=== PATIENT | male | born 1950 | race Two or more races ===

== ENCOUNTER 2021-08-30 22:12 | Inpatient (IN) | payer MEDICARE, BC ==
[~2021-08-30] VITALS: Ht 167.6 cm; Wt 83.1 kg
--- NOTE | 2021-08-30 22:30 | NUR ---
BIBS C/O LEFT THIGH PAIN S/P [facility] TODAY -HT -KO. SEEN AT [facility]ENT [facility] TODAY BUT IS HAVING PERSISTENT PAIN. PT CHANGED INTO A GOWN. BREATHING EVEN AND UNLABORED ALL VITALS WITHIN RANGE.
[2021-08-30 23:08] LABS: BASOPHILS % (AUTO) 0.2 % (0.0-2.0); EOSINOPHILS % (AUTO) 0.1 % (0.0-6.0); HEMATOCRIT 35 % (39-51); HEMOGLOBIN 11.9 g/dL (13.5-17.5); LYMPHOCYTES # (AUTO) 1.4 K/uL (0.8-4.8); LYMPHOCYTES % (AUTO) 8.7 % (20.0-44.0); MEAN CORPUSCULAR HGB CONC 34 g/dl (31.0-36.0); MEAN CORPUSCULAR VOLUME 87 fL (80-96); MONOCYTES # (AUTO) 0.6 K/uL (0.1-1.30); MONOCYTES % (AUTO) 3.9 % (2.0-12.0); NEUTROPHILS # (AUTO) 13.9 K/uL (1.8-8.9); NEUTROPHILS % (AUTO) 87.1 % (43.0-81.0); PLATELET COUNT (AUTO) 272 K/uL (150-450); WHITE BLOOD COUNT (AUTO) 15.9 K/uL (4.3-11.0)
[2021-08-30 23:15] LABS: CALCIUM, SERUM 8.5 mg/dL (8.5-10.1); CARBON DIOXIDE 21 mmol/L (21-32); CHLORIDE 104 mmol/L (98-107); CREATININE 2.4 mg/dL (0.6-1.3); GLUCOSE 160 mg/dL (74-106); POTASSIUM 4.2 mmol/L (3.5-5.1); SODIUM SERUM 138 mmol/L (136-145); UREA NITROGEN, BLOOD 42 mg/dL (7-18)
[2021-08-30] MEDS ORDERED: MORPHINE SULFATE INJ 4 MG/ML DISP.SYRIN ONE (23:15)
[2021-08-30] MEDS ORDERED: MORPHINE SULFATE INJ 2 MG/ML DISP.SYRIN IV ONE (23:30)
--- NOTE | 2021-08-30 23:33 | NUR ---
PT TAKEN TO CT
[2021-08-31] MEDS ORDERED: MORPHINE SULFATE INJ 4 MG/ML DISP.SYRIN ONE (00:12)
[2021-08-31] MEDS ORDERED: MORPHINE SULFATE INJ 2 MG/ML DISP.SYRIN IV ONE (00:30)
--- NOTE | 2021-08-31 01:38 | NUR ---
CALLED ANDREY FOR CT READ
--- NOTE | 2021-08-31 01:47 | NUR ---
PT BP ELEVATED REPORTS HISTORY OF HTN. STATES PAIN IS WELL MANAGED. MD NOTIFIED AND ORDERS RECIEVED.
[2021-08-31] MEDS ORDERED: LABETALOL HCL IV 100MG VIAL ONE (01:55)
[2021-08-31] MEDS ORDERED: LABETALOL HCL IV 100MG VIAL IV ONE (02:00)
--- NOTE | 2021-08-31 02:28 | NUR ---
DR MANNING PAGED FOR CONSULT AND TRANSFERRED TO DR DOCKERY
--- NOTE | 2021-08-31 02:32 | NUR ---
pt info sent to Dr. Fischer
--- NOTE | 2021-08-31 03:28 | NUR ---
COVID SWAB SENT TO LAB
--- NOTE | 2021-08-31 04:43 | NUR ---
EPIC PANEL PAGED
--- NOTE | 2021-08-31 04:43 | NUR ---
Marcial cao in [facility] - 08/31/21 at 0443 by JULIETA EPIO
--- NOTE | 2021-08-31 05:16 | NUR ---
PT SLEEPING COMOFORTABLY BREATHING EVEN AND UNLABORED ALL VSS CALL LIGHT WITHIN REACH.
[2021-08-31] MEDS ORDERED: MAGNESIUM HYDROXIDE 30 ML UDC PO PRN (06:00)
[2021-08-31] MEDS ORDERED: ZOLPIDEM TARTRATE 5 MG TABLET PO PRN (06:00)
[2021-08-31] MEDS ORDERED: ACETAMINOPHEN 325 MG TABLET PO PRN (06:00)
[2021-08-31] MEDS ORDERED: ONDANSETRON HCL/PF 4 MG/2 ML VIAL IVP PRN (06:00)
[2021-08-31] MEDS ORDERED: Z GUARD REMEDY 2 OZ OINT TP PRN (06:00)
[2021-08-31] MEDS ORDERED: MAG HYDROX/AL HYDROX/SIMETH 30 ML UDC PO PRN (06:00)
--- NOTE | 2021-08-31 06:21 | NUR ---
CTA CANCELLED PER DR MANNING'S VERBAL ORDERS. WAS INFORMED TO CONTACT VASCULAR SURGERY.
[2021-08-31 06:44] LABS: BASOPHILS % (AUTO) 0.2 % (0.0-2.0); EOSINOPHILS % (AUTO) 0.1 % (0.0-6.0); HEMATOCRIT 34 % (39-51); HEMOGLOBIN 11.3 g/dL (13.5-17.5); LYMPHOCYTES # (AUTO) 2.5 K/uL (0.8-4.8); LYMPHOCYTES % (AUTO) 15.4 % (20.0-44.0); MEAN CORPUSCULAR HGB CONC 34 g/dl (31.0-36.0); MEAN CORPUSCULAR VOLUME 89 fL (80-96); MONOCYTES # (AUTO) 1.2 K/uL (0.1-1.30); MONOCYTES % (AUTO) 7.1 % (2.0-12.0); NEUTROPHILS # (AUTO) 12.7 K/uL (1.8-8.9); NEUTROPHILS % (AUTO) 77.2 % (43.0-81.0); PLATELET COUNT (AUTO) 255 K/uL (150-450); RED BLOOD CELL COUNT(AUTO) 3.78 MIL/uL (4.5-6.0); WHITE BLOOD COUNT (AUTO) 16.4 K/uL (4.3-11.0)
[2021-08-31 06:54] LABS: CALCIUM, SERUM 8.4 mg/dL (8.5-10.1); CARBON DIOXIDE 24 mmol/L (21-32); CHLORIDE 104 mmol/L (98-107); CREATININE 2.4 mg/dL (0.6-1.3); GLUCOSE 127 mg/dL (74-106); MAGNESIUM 2.6 mg/dL (1.8-2.4); PHOSPHORUS 5.2 mg/dL (2.5-4.9); POTASSIUM 4.6 mmol/L (3.5-5.1); SODIUM SERUM 138 mmol/L (136-145); UREA NITROGEN, BLOOD 40 mg/dL (7-18)
--- NOTE | 2021-08-31 06:59 | NUR ---
DR. MANNING FRO VASCULAR SURGEON CONSULT FOR L THIGH HEMOREHAGE TO R/O ACTIVE BLEEDING. SPOKE WITH DR. MANNING AND RECOMMENDED TO TRANSFER PT FOR ANGIOGRAM WITH USE OF LESS DYE. WILL RELAY TO INPATIENT [facility]
[2021-08-31 07:12] LABS: CHOLESTEROL 159 mg/dL (<200); HDL CHOLESTEROL 32 mg/dL (40-60); LDL 106 mg/dL (0-99); TRIGLYCERIDES 62 mg/dL (30-150)
[2021-08-31] MEDS ORDERED: CLON1PAT12 TP (07:53)
[2021-08-31] MEDS ORDERED: NIFE-35 PO (07:53)
--- NOTE | 2021-08-31 07:54 | NUR ---
ROOM 323-2
[2021-08-31 08:00] VITALS: BP 135/97
--- NOTE | 2021-08-31 08:02 | NUR ---
report given to nurse Barbour
[2021-08-31 08:20] VITALS: BP 150/91
--- NOTE | 2021-08-31 08:20 | NUR ---
MS MORTAR MIXER OPERATOR NOTE PT TRANSPORTED VIA GURNEY TO UNIT AT THIS TIME. PT ADMITTED TO MS UNIT FROM ER UNDER DR PUENTE FOR ADMITTING DX OF INTRAMUSCULAR HEMORRHAGE. A/O X4. PT IS AMBULATORY WITH STEADY GAIT AND CANE. PT IS STABLE ON ROOM AIR WITH NO SOB OR S/S OF RESPIRATORY DISTRESS NOTED. PT HAS NO C/O PAIN OR DISCOMFORT AT THIS TIME. IV ACCESS IN RAC #18, INTACT AND PATENT. PT KEPT NPO AT THIS TIME. SKIN IS INTACT. PT ORIENTED TO STAFF, ROOM, AND UNIT. SAFETY PRECAUTIONS MAINTAINED. BED IN LOWEST LOCKED POSITION, HOB ELEVATED, SIDE RAILS UP X2. BED ALARM ON. CALL LIGHT AND TABLE WITHIN REACH. WILL CONTINUE TO MONITOR. Addendum: 08/31/21 at 0857 by PERNELL HUNTER RN MS MORTAR MIXER OPERATOR NOTE ([id number]) PT TRANSPORTED VIA [facility] TO UNIT AT THIS TIME. PT ADMITTED TO MS UNIT FROM ER UNDER DUSTIN MARTINEZ FOR ADMITTING DX OF INTRAMUSCULAR HEMORRHAGE. A/O X4. PT IS STABLE ON ROOM AIR WITH NO SOB OR S/S OF RESPIRATORY DISTRESS NOTED. PT HAS NO C/0 PAIN OR DISCOMFORT AT THIS TIME. IV ACCESS IN RAC #18, INTACT AND PATENT. PT KEPT NPO AT THIS TIME. SKIN IS INTACT. PT ORIENTED TO STAFF, ROOM, AND UNIT. SAFETY PRECAUTIONS MAINTAINED. BED IN LOWEST LOCKED POSITION, HOB ELEVATED, SIDE RAILS UP X2. BED ALARM ON. CALL LIGHT AND TABLE WITHIN REACH. WILL CONTINUE TO MONITOR.
--- NOTE | 2021-08-31 09:00 | NUR ---
MEASUREMENTS TAKEN OF PT'S LEFT UPPER THIGH PER DRY CHAIN OPERATOR MARTINEZ'S ORDER: CIRCUMFERENCE OF LEFT UPPER THIGH: 25.5 IN CIRCUMFERENCE OF RIGHT UPPER THIGH: 20.5 IN
[2021-08-31 09:12] VITALS: BP 150/91
[2021-08-31] MEDS: NIFEdipine XL (30MG) 30 MG TAB PO SCH (09:34)
[2021-08-31] MEDS: IV NS 0.9% 1,000 ML IV PRN (11:17)
[2021-08-31 16:00] VITALS: BP 157/88
[2021-08-31] MEDS ORDERED: CLONIDINE HCL 0.1 MG TABLET PO PRN (16:30)
--- NOTE | 2021-08-31 17:00 | NUR ---
PHOTOS TAKEN OF LEFT THIGH HEMATOMA AND FILED IN CHART.
--- NOTE | 2021-08-31 17:16 | NUR ---
MEASUREMENTS TAKEN OF PT'S LEFT UPPER THIGH PER DNP MARTINEZ'S ORDER: CIRCUMFERENCE OF LEFT UPPER THIGH: 24 IN CIRCUMFERENCE OF RIGHT UPPER THIGH: 20.5 IN
[2021-08-31] MEDS ORDERED: MORPHINE SULFATE INJ 2 MG/ML DISP.SYRIN IV PRN (17:30)
[2021-08-31 17:48] LABS: PROSTATE SPECIFIC ANTIGEN SCR 35.2 ng/mL (0.00-4.00)
--- NOTE | 2021-08-31 18:31 | NUR ---
MS RN CLOSING NOTE PT IS AWAKE IN BED. A/O X4. PT IS STABLE ON ROOM AIR WITH NO SOB OR S/S OF RESPIRATORY DISTRESS NOTED. PT HAS NO C/O PAIN OR DISCOMFORT AT THIS TIME. IV ACCESS IN RAC #18 INFUSING NS AT 100ML/HR, INTACT AND PATENT. ALL NEEDS HAVE BEEN MET. SAFETY PRECAUTIONS MAINTAINED AT ALL TIMES. BED IN LOWEST LOCKED POSITION, HOB ELEVATED, SIDE RAILS UP X2. BED ALARM ON. CALL LIGHT AND TABLE WITHIN REACH. WILL ENDORSE TO ONCOMING NURSE FOR RENÉ.
--- NOTE | 2021-08-31 19:35 | NUR ---
MS RN NOTE PATIENT IN BED WITH EYES CLOSED, EASY TO AROUSE. A/OX4. NO S/S OF APPARENT DISTRESS ON ROOM AIR. NO C/O PAIN. IV NS RUNNING AT 100 ML/HR. SAFETY IN PLACE. NO NEEDS AT THIS TIME. WILL FOLLOW THROUGH CARE PLAN.
[2021-08-31 20:00] VITALS: BP 142/64
--- NOTE | 2021-08-31 21:32 | NUR ---
NEUROVASCULAR CHECK RN NOTE CIRCUMFERENCE OF L. THIGH 24 INCHES FROM THE ORIGINAL MARKED POINT. UNABLE TO ASSESS CAPILLARY REFILL BECAUSE OF PATIENT'S TOENAILS. INTACT AND GOOD STRENGTH AND PULSE.
[2021-08-31] MEDS: TAMSULOSIN 0.4 MG CAP.SR.24H PO SCH (22:04)
--- NOTE | 2021-09-01 01:28 | NUR ---
neurovascular check rn note patient thigh circumference now measuring 25 and 2/4. pedal pulses noted. will cont. to monitor.
--- NOTE | 2021-09-01 05:33 | NUR ---
neurovascular check rn note thigh circumference now at 25.025 inches. pedal pulses present. No pallor, paresthesia, paralysis noted. Patient denies any pain.
--- NOTE | 2021-09-01 06:56 | NUR ---
MS RN CLOSING PATIENT IN BED. A/OX4. NO S/S OF APPARENT DISTRESS ON ROOM AIR. DENIES ANY PAIN. NEUROVASCULAR CHECKS DONE Q4. ALL SHED MEDS ADMINISTERED. SAFETY KEPT IN PLACE THE WHOLE SHIFT. WILL ENDORSE TO MORNING SHIFT RN.
[2021-09-01 07:26] LABS: BASOPHILS % (AUTO) 0.3 % (0.0-2.0); EOSINOPHILS % (AUTO) 1.5 % (0.0-6.0); HEMATOCRIT 25 % (39-51); HEMOGLOBIN 8.6 g/dL (13.5-17.5); LYMPHOCYTES % (AUTO) 18.8 % (20.0-44.0); MEAN CORPUSCULAR HGB CONC 35 g/dl (31.0-36.0); MEAN CORPUSCULAR VOLUME 89 fL (80-96); MONOCYTES # (AUTO) 0.9 K/uL (0.1-1.30); MONOCYTES % (AUTO) 8.6 % (2.0-12.0); NEUTROPHILS # (AUTO) 7.6 K/uL (1.8-8.9); NEUTROPHILS % (AUTO) 70.8 % (43.0-81.0); PLATELET COUNT (AUTO) 191 K/uL (150-450); RED BLOOD CELL COUNT(AUTO) 2.81 MIL/uL (4.5-6.0); WHITE BLOOD COUNT (AUTO) 10.7 K/uL (4.3-11.0)
--- NOTE | 2021-09-01 07:44 | NUR ---
MS RN OPENING NOTE RECEIVED PT AWAKE IN BED. A/O X4. PT IS STABLE ON ROOM AIR WITH NO SOB OR S/S OF RESPIRATORY DISTRESS NOTED. PT HAS NO C/0 PAIN OR DISCOMFORT AT THIS TIME. IV ACCESS IN RAC #18 INFUSING NS AT 100 ML/HR, INTACT AND PATENT. HEMATOMA NOTED LEFT UPPER THIGH. SAFETY PRECAUTIONS MAINTAINED. BED IN LOWEST LOCKED POSITION, HOB ELEVATED, SIDE RAILS UP X2. BED ALARM ON. CALL LIGHT AND TABLE WITHIN REACH. WILL CONTINUE TO MONITOR.
[2021-09-01 08:03] LABS: ALANINE AMINOTRANSFERASE 23 U/L (12-78); ALBUMIN 2.9 g/dL (3.4-5.0); ALKALINE PHOSPHATASE 77 U/L (46-116); ASPARTATE AMINOTRANSFERASE 34 U/L (15-37); BILIRUBIN,TOTAL 0.7 mg/dL (0.2-1.0); CALCIUM, SERUM 8.2 mg/dL (8.5-10.1); CARBON DIOXIDE 25 mmol/L (21-32); CHLORIDE 106 mmol/L (98-107); CREATININE 2.2 mg/dL (0.6-1.3); GLUCOSE 108 mg/dL (74-106); MAGNESIUM 2.5 mg/dL (1.8-2.4); POTASSIUM 4.3 mmol/L (3.5-5.1); SODIUM SERUM 138 mmol/L (136-145); TOTAL PROTEIN, SERUM 6.1 g/dL (6.4-8.2); UREA NITROGEN, BLOOD 39 mg/dL (7-18)
[2021-09-01 08:07] LABS: CREATINE KINASE, TOTAL 1204 U/L (39-308)
[2021-09-01] MEDS: NIFEdipine XL (30MG) 30 MG TAB PO SCH (08:23)
[2021-09-01 09:16] VITALS: BP 132/58
--- NOTE | 2021-09-01 09:16 | NUR ---
NEUROVASCULAR CHECK RN NOTE THIGH CIRCUMFERENCE AT 25.025 IN. PEDAL PULSES PRESENT. NO PALLOR, PARESTHESIA, PARALYSIS NOTED. PT DENIES PAIN AT THIS TIME.
--- NOTE | 2021-09-01 13:16 | NUR ---
NEUROVASCULAR CHECK RN NOTE THIGH CIRCUMFERENCE AT 25 IN. PEDAL PULSES PRESENT. NO PALLOR, PARESTHESIA, PARALYSIS NOTED. PT DENIES PAIN AT THIS TIME.
[2021-09-01 16:28] VITALS: BP 140/67
--- NOTE | 2021-09-01 17:16 | NUR ---
NEUROVASCULAR CHECK RN NOTE THIGH CIRCUMFERENCE AT 25 IN. PEDAL PULSES PRESENT. NO PALLOR, PARESTHESIA, PARALYSIS NOTED. PT DENIES PAIN AT THIS TIME.
--- NOTE | 2021-09-01 19:38 | NUR ---
RN OPENING NOTES RECEIVED PT IN CHAIR AT BEDSIDE. AOx4, [place]GI[place] AND [place] SPEAKING. ABLE TO MAKE NEEDS KNOWN. ON RA AND TOLERATING WELL. NO SOB NOTED. NO S/SX OF RESPIRATORY DISTRESS NOTED. IV ACCESS IN RAC#18 RUNNING NS @100 ML/HR. NO COMPLAINTS OF PAIN OR NAUSEA AT THIS TIME. SAFETY PRECAUTIONS IN PLACE: BED IN LOWEST, LOCKED POSITION, SIDERAILS UPx2, AND BRAKES ON. CALL LIGHT AND TABLE WITHIN REACH. WILL CONTINUE TO MONITOR.
[2021-09-01 20:07] VITALS: BP 156/71
[2021-09-01] MEDS: TAMSULOSIN 0.4 MG CAP.SR.24H PO SCH (21:19)
[2021-09-02] VITALS (8 sets, daily range): BP systolic 141–162; BP diastolic 71–88
--- NOTE | 2021-09-02 06:35 | NUR ---
RN CLOSING NOTES PT IN BED, ASLEEP, AWAKENS TO VERBAL STIMULI. AOx4, MALAG[place] AND MONGOL[place] SPEAKING. ABLE TO MAKE NEEDS KNOWN. ON RA AND TOLERATING WELL. NO SOB NOTED. NO S/SX OF RESPIRATORY DISTRESS NOTED. IV ACCESS IN RAC#18 RUNNING NS @100 ML/HR. NO COMPLAINTS OF PAIN OR NAUSEA THROUGHOUT SHIFT. ALL NEEDS MET. PT KEPT CLEAN AND DRJuan Luis SAFETY PRECAUTIONS IN PLACE: BED IN LOWEST, LOCKED POSITION, SIDERAILS UPx2, AND BRAKES ON. CALL LIGHT AND TABLE WITHIN REACH. WILL ENDORSE TO ONCOMING SHIFT FOR RENÉ.
[2021-09-02 07:16] LABS: BASOPHILS % (AUTO) 0.4 % (0.0-2.0); EOSINOPHILS % (AUTO) 3.6 % (0.0-6.0); HEMATOCRIT 23 % (39-51); HEMOGLOBIN 7.9 g/dL (13.5-17.5); LYMPHOCYTES # (AUTO) 2.2 K/uL (0.8-4.8); LYMPHOCYTES % (AUTO) 25.3 % (20.0-44.0); MEAN CORPUSCULAR HGB CONC 35 g/dl (31.0-36.0); MEAN CORPUSCULAR VOLUME 88 fL (80-96); MONOCYTES # (AUTO) 0.8 K/uL (0.1-1.30); MONOCYTES % (AUTO) 9.3 % (2.0-12.0); NEUTROPHILS # (AUTO) 5.4 K/uL (1.8-8.9); NEUTROPHILS % (AUTO) 61.4 % (43.0-81.0); PLATELET COUNT (AUTO) 195 K/uL (150-450); RED BLOOD CELL COUNT(AUTO) 2.58 MIL/uL (4.5-6.0); WHITE BLOOD COUNT (AUTO) 8.7 K/uL (4.3-11.0)
[2021-09-02 07:50] LABS: CALCIUM, SERUM 8.2 mg/dL (8.5-10.1); CARBON DIOXIDE 25 mmol/L (21-32); CHLORIDE 107 mmol/L (98-107); CREATININE 1.9 mg/dL (0.6-1.3); GLUCOSE 95 mg/dL (74-106); MAGNESIUM 2.5 mg/dL (1.8-2.4); POTASSIUM 4.4 mmol/L (3.5-5.1); SODIUM SERUM 140 mmol/L (136-145); UREA NITROGEN, BLOOD 37 mg/dL (7-18)
[2021-09-02 08:06] LABS: CREATININE KINASE (CK),MB 4.7 ng/mL (0.0-10.4)
[2021-09-02] MEDS: NIFEdipine XL (30MG) 30 MG TAB PO SCH (08:28)
--- NOTE | 2021-09-02 10:00 | NUR ---
m/s gauge maker: md visit seen and examined by glory white ([facility] administrator). pt for d'c planning today if cleared by vascular per glory. awaiting if pt needs blood transfusion or not per [facility] administrator.
--- NOTE | 2021-09-02 11:25 | NUR ---
m/s cosmetology teacher: notes pt hesitating to sign the consent for blood transfusion, still wants to go home and come back after transfusion as outpatient. informed pt that the vascular surgeon wants to keep him one more day and re check hgb/hct level tomorrow. spoke to glory (lara). glory white (lara) at bedside and teaching provided re: blood transfusion. pt called his son and agreed for blood transfusion. pt signed the consent.
--- NOTE | 2021-09-02 11:46 | NUR ---
m/s change attendant: notes f/u made to lab re: type and screen draw, spoke to kathryn, stated, "they are coming to draw the lab."
[2021-09-02 11:57] LABS: *SPE A/G RATIO 1.1 (0.7-1.7); *SPE ALPHA-1-GLOBULIN 0.3 g/dL (0.0-0.4); *SPE ALPHA-2-GLOBULIN 0.6 g/dL (0.4-1.0); *SPE BETA GLOBULIN 0.8 g/dL (0.7-1.3); *SPE M-SPIKE 0.3 g/dL (Not Observed)
--- NOTE | 2021-09-02 14:25 | NUR ---
m/s catering director: notes f/u made to blood bank to verify if blood is ready, spoke to martina (blood bank) and says she still needs a 2nd blood type due to no history with this pt. pt made aware.
--- NOTE | 2021-09-02 15:30 | NUR ---
m/s statement processor: notes f/u made to martina (blood bank) and informed me that blood still running and will be ready in 10 minutes.
--- NOTE | 2021-09-02 16:15 | NUR ---
m/s global analytics head: notes 1 unit of prbc started at this time. vss. afebrile. at bedside. will continue to monitor.
--- NOTE | 2021-09-02 16:30 | NUR ---
m/s pbx manager: notes no a/r noted after 15 minutes of transfusion. vss, afebrile. left the hospital at this time. instructed to call for assistance. will continue to monitor.
--- NOTE | 2021-09-02 17:30 | NUR ---
m/s warp drawer: notes blood transfusion in progress. vss, afebrile. instructed to call for assistance. will continue to monitor.
--- NOTE | 2021-09-02 18:15 | NUR ---
m/s assembler type bar and segment: notes blood transfusion still in running. no a/r noted. afebrile. needs attended. will continue to monitor.
--- NOTE | 2021-09-02 19:10 | NUR ---
m/s customer pricing manager: notes blood transfusion completed without a/r noted. remains afebrile. no distress noted. report given to lanny (rn) for continuity of care.
--- NOTE | 2021-09-02 19:47 | NUR ---
RN OPENING NOTES RECEIVED PT IN BED, AWAKE. AOx4, [place] AND [place]AN SPEAKING. ABLE TO MAKE NEEDS KNOWN. ON RA AND TOLERATING WELL. NO SOB NOTED. NO S/SX OF RESPIRATORY DISTRESS NOTED. IV ACCESS IN LFA#20. FINISHING BLOOD TRANSFUSION. PT DENIES ITCHINESS OR SOB. NO COMPLAINTS OF PAIN OR NAUSEA AT THIS TIME. SAFETY PRECAUTIONS IN PLACE: BED IN LOWEST, LOCKED POSITION, SIDERAILS UPx2, AND BRAKES ON. CALL LIGHT AND TABLE WITHIN REACH. WILL CONTINUE TO MONITOR.
[2021-09-02] MEDS: TAMSULOSIN 0.4 MG CAP.SR.24H PO SCH (21:13)
[2021-09-02] MEDS: IV NS 0.9% 1,000 ML IV PRN (23:13)
[2021-09-03 07:04] LABS: BASOPHILS # (AUTO) 0.1 K/uL (0.0-0.2); BASOPHILS % (AUTO) 0.6 % (0.0-2.0); EOSINOPHILS % (AUTO) 5.2 % (0.0-6.0); HEMATOCRIT 25 % (39-51); HEMOGLOBIN 8.7 g/dL (13.5-17.5); LYMPHOCYTES # (AUTO) 2.3 K/uL (0.8-4.8); LYMPHOCYTES % (AUTO) 24.8 % (20.0-44.0); MEAN CORPUSCULAR HGB CONC 35 g/dl (31.0-36.0); MEAN CORPUSCULAR VOLUME 88 fL (80-96); MONOCYTES # (AUTO) 0.8 K/uL (0.1-1.30); MONOCYTES % (AUTO) 8.5 % (2.0-12.0); NEUTROPHILS # (AUTO) 5.7 K/uL (1.8-8.9); NEUTROPHILS % (AUTO) 60.9 % (43.0-81.0); PLATELET COUNT (AUTO) 224 K/uL (150-450); RED BLOOD CELL COUNT(AUTO) 2.82 MIL/uL (4.5-6.0); WHITE BLOOD COUNT (AUTO) 9.3 K/uL (4.3-11.0)
--- NOTE | 2021-09-03 07:24 | NUR ---
RN CLOSING NOTES PT IN BED, AWAKE. AOx4, [place] AND CITIZEN OF [place] SPEAKING. ABLE TO MAKE NEEDS KNOWN. ON RA AND TOLERATING WELL. NO SOB NOTED. NO S/SX OF RESPIRATORY DISTRESS NOTED. IV ACCESS IN LFA#20. NO ADVERSE EFFECTS FROM BLOOD TRANSFUSION. NO COMPLAINTS OF PAIN OR NAUSEA THROUGHOUT SHFIT. ALL NEEDS MET. PT KEPT CLEAN AND DRY. SAFETY PRECAUTIONS IN PLACE: BED IN LOWEST, LOCKED POSITION, SIDERAILS UPx2, AND BRAKES ON. CALL LIGHT AND TABLE WITHIN REACH. WILL ENDORSE TO ONCOMING SHIFT FOR RENÉ.
[2021-09-03 07:56] LABS: CALCIUM, SERUM 8.2 mg/dL (8.5-10.1); CARBON DIOXIDE 26 mmol/L (21-32); CHLORIDE 107 mmol/L (98-107); CREATININE 1.7 mg/dL (0.6-1.3); GLUCOSE 94 mg/dL (74-106); MAGNESIUM 2.3 mg/dL (1.8-2.4); SODIUM SERUM 141 mmol/L (136-145); UREA NITROGEN, BLOOD 31 mg/dL (7-18)
[2021-09-03 08:00] VITALS: BP 149/84
--- NOTE | 2021-09-03 08:00 | NUR ---
m/s greenhouse technician: notes received pt in bed awake, a/ox4. no c/o pain or any discomfort. left thigh still with hematoma and measuring at 24.75 inches in circumference. no distress noted. instructed to call for assistance.
[2021-09-03 08:44] VITALS: BP 149/84
[2021-09-03] MEDS: NIFEdipine XL (30MG) 30 MG TAB PO SCH (08:44)
--- NOTE | 2021-09-03 11:30 | NUR ---
m/s sky diver: notes left message to dr. bonner (vascular), spoke to mike (church secretary) re: d'c home clearance. per mike, dr. bonner is doing a procedure at this time and will relay message.
--- NOTE | 2021-09-03 12:00 | NUR ---
m/s die sizer: notes no change in measurement on left thigh. denies any discomfort. pt still wants to go. will continue to monitor.
--- NOTE | 2021-09-03 14:00 | NUR ---
m/s retail project merchandiser: md visit seen and examined by dr. ackerman at this time and informed pt that we are still waiting for dr. bonner's clearance.
--- NOTE | 2021-09-03 14:15 | NUR ---
m/s public message service supervisor: notes f/u made to dr. bonner, left message to mike once more and will relay message.
--- NOTE | 2021-09-03 14:40 | NUR ---
m/s counter waitress/waiter: notes dr. bonner (vascular surgeon) called back and informed me that he is good to go and he has spoken to dr. ackerman to discharge him. dr. ackerman notified and verified with him that he has spoken to dr. bonner and will do his discharge today. pt made aware.
[2021-09-03] MEDS ORDERED: TAMS-12 PO (14:56)
--- NOTE | 2021-09-03 15:00 | NUR ---
m/s routing machine operator: notes received d'c order from dr. ackerman. order acknowledged.
--- NOTE | 2021-09-03 15:45 | NUR ---
m/s eyewear consultant: notes discharge instructions given with prescription via e script to pt and verbalized understanding. h/l removed with tip intact.
--- NOTE | 2021-09-03 16:00 | NUR ---
m/s shopper insights manager: home discharge home in stable condition accompanied by via private car with valuables.
== END 2021-09-03 16:00 | disposition home or self-care (01) | DRG 604 ==
LOC: ER 22:17 → MED 08-31 07:58
PROVIDERS: ADMIT Nurse Practitioner Family; ATTEND Nurse Practitioner Acute Care
PROC: 30233N1 Transfusion of Nonautologous Red Blood Cells into Peripheral Vein, Percutaneous Approach (ICD-10-PCS; principal; 2021-09-02)
DX: S70.12XA Contusion of left thigh, initial encounter (principal); N17.0 Acute kidney failure with tubular necrosis; M62.82 Rhabdomyolysis; D62 Acute posthemorrhagic anemia; Y92.9 Unspecified place or not applicable; I12.9 Hypertensive chronic kidney disease with stage 1 through stage 4 chronic kidney disease, or unspecified chronic kidney disease; D72.829 Elevated white blood cell count, unspecified; D64.9 Anemia, unspecified; W19.XXXA Unspecified fall, initial encounter; Y93.89 Activity, other specified; Y92.89 Other specified places as the place of occurrence of the external cause; Z20.822 Contact with and (suspected) exposure to COVID-19; N18.30 Chronic kidney disease, stage 3 unspecified
CPT/HCPCS: 36415; 73700-TC; 76770-TC; 80048-TC; 80053-TC; 80061-TC; 82550-TC; 82553; 83735-TC; 83970; 84100-TC; 84153-TC; 84154-TC; 84155; 84165; 85025-TC; 86850-TC; 87081-TC; C9803; G0378; J2270; J3490; J7030; J7050; P9016

== ENCOUNTER 2021-09-06 05:25 | Emergency (ER) | payer MEDICARE, BC ==
[~2021-09-06] VITALS: Ht 167.6 cm; Wt 81.6 kg
[~2021-09-06 05:25] MED LIST: CLON1PAT12 TP; NIFE-35 PO; TAMS-12 PO
--- NOTE | 2021-09-06 05:56 | NUR ---
PT BIBS C/O LEFT THIGH PAIN. PT WAS SEEN FOR SAME ISSUE AND DISCHARGED ON . PLACED IN BED 7 ON MONITOR AND PULSE OX. AWAITING ER MD FOR EVAL AND ORDERS.
[2021-09-06] MEDS ORDERED: HYDROCODONE/APAP 10/325MG TABLET ONE ×2 (06:21→09:19)
[2021-09-06] MEDS ORDERED: HYDROCODONE/APAP 10/325MG TABLET PO ONE ×2 (06:30→09:30)
--- NOTE | 2021-09-06 06:41 | NUR ---
BROUGHT TO CT
[2021-09-06 06:53] LABS: BASOPHILS % (AUTO) 0.2 % (0.0-2.0); EOSINOPHILS % (AUTO) 0.2 % (0.0-6.0); HEMATOCRIT 28 % (39-51); HEMOGLOBIN 9.6 g/dL (13.5-17.5); LYMPHOCYTES # (AUTO) 1.4 K/uL (0.8-4.8); LYMPHOCYTES % (AUTO) 9.3 % (20.0-44.0); MEAN CORPUSCULAR HGB CONC 35 g/dl (31.0-36.0); MEAN CORPUSCULAR VOLUME 88 fL (80-96); MONOCYTES # (AUTO) 1.3 K/uL (0.1-1.30); MONOCYTES % (AUTO) 9.1 % (2.0-12.0); NEUTROPHILS # (AUTO) 11.9 K/uL (1.8-8.9); NEUTROPHILS % (AUTO) 81.2 % (43.0-81.0); PLATELET COUNT (AUTO) 372 K/uL (150-450); RED BLOOD CELL COUNT(AUTO) 3.15 MIL/uL (4.5-6.0); WHITE BLOOD COUNT (AUTO) 14.6 K/uL (4.3-11.0)
[2021-09-06 07:04] LABS: CALCIUM, SERUM 9.1 mg/dL (8.5-10.1); CARBON DIOXIDE 24 mmol/L (21-32); CHLORIDE 103 mmol/L (98-107); CREATININE 1.8 mg/dL (0.6-1.3); GLUCOSE 136 mg/dL (74-106); POTASSIUM 3.9 mmol/L (3.5-5.1); SODIUM SERUM 139 mmol/L (136-145); UREA NITROGEN, BLOOD 34 mg/dL (7-18)
[2021-09-06] MEDS ORDERED: CEFTRIAXONE 1 G VIAL IM ONE (09:00)
[2021-09-06] MEDS ORDERED: LIDOCAINE /MPF 1% VIAL 5 ML VIAL ONE (09:01)
[2021-09-06] MEDS ORDERED: CEPH500C2 PO (09:02)
[2021-09-06] MEDS ORDERED: CEFTRIAXONE 1 G VIAL ONE (09:02)
[2021-09-06] MEDS ORDERED: TRAM50TA2 PO (09:04)
--- NOTE | 2021-09-06 09:20 | NUR ---
Patient discharged to home in stable condition. Written and verbal after care instructions given. Patient verbalizes understanding of instruction.
[2021-09-06 09:21] VITALS: BP 128/71
== END 2021-09-06 09:21 | disposition home or self-care (01) ==
LOC: ER 05:29
DX: S70.12XA Contusion of left thigh, initial encounter (principal); M79.605 Pain in left leg; I10 Essential (primary) hypertension; Z79.899 Other long term (current) drug therapy; X58.XXXA Exposure to other specified factors, initial encounter; Y93.89 Activity, other specified; Y92.89 Other specified places as the place of occurrence of the external cause; Y99.8 Other external cause status
CPT/HCPCS: 36415; 73700; 80048; 85025; 96372; 99284; J0696; J3490

== ENCOUNTER 2022-11-11 22:32 | Emergency (ER) | payer MEDICARE, BC ==
[~2022-11-11] VITALS: Ht 170.2 cm; Wt 78.5 kg
[~2022-11-11 22:32] MED LIST changes: +CEPH500C2 PO; +TRAM50TA2 PO
--- NOTE | 2022-11-11 22:49 | NUR ---
BIBS FROM HOME FOR C/O MILD ABDOMINAL PAIN , AND HIGH BP. PT A/OX4. TOLERATING R/A WELL WITH NO RESP DISTRESS. SAFETY MEASURES IN PLACE.
--- NOTE | 2022-11-11 22:57 | NUR ---
DR. CHRISTINE CRAWFORD AT PT'S BEDSIDE
--- NOTE | 2022-11-11 22:57 | NUR ---
EMT AT PT'S BEDSIDE FOR EKG
[2022-11-11] MEDS ORDERED: hydrALAZINE HCL IV 20 MG VIAL ONE (23:03)
[2022-11-11] MEDS: hydrALAZINE HCL IV 20 MG VIAL IV ONE (23:10)
[2022-11-11 23:41] LABS: BASOPHILS % (AUTO) 0.4 % (0.0-2.0); EOSINOPHILS % (AUTO) 3.1 % (0.0-6.0); HEMATOCRIT 38 % (39-51); LYMPHOCYTES # (AUTO) 1.8 K/uL (0.8-4.8); LYMPHOCYTES % (AUTO) 18.7 % (20.0-44.0); MEAN CORPUSCULAR HGB CONC 34 g/dl (31.0-36.0); MEAN CORPUSCULAR VOLUME 87 fL (80-96); MONOCYTES # (AUTO) 0.6 K/uL (0.1-1.30); MONOCYTES % (AUTO) 6.2 % (2.0-12.0); NEUTROPHILS # (AUTO) 6.9 K/uL (1.8-8.9); NEUTROPHILS % (AUTO) 71.6 % (43.0-81.0); PLATELET COUNT (AUTO) 261 K/uL (150-450); RED BLOOD CELL COUNT(AUTO) 4.37 MIL/uL (4.5-6.0); WHITE BLOOD COUNT (AUTO) 9.7 K/uL (4.3-11.0)
[2022-11-11 23:57] LABS: BILIRUBIN,URINE NEGATIVE (NEGATIVE); COLOR,URINE YELLOW (YELLOW); LEUKOCYTE ESTERASE ,URINE NEGATIVE (NEGATIVE); NITRITE, URINE NEGATIVE (NEGATIVE); PH,URINE 5.5 (5.0-8.0); PROTEIN,URINE NEGATIVE (NEGATIVE); UGLUCOSE NEGATIVE (NEGATIVE); UROBILINOGEN,URINE 0.2 EU/dL (0.2)
[2022-11-12 00:04] LABS: ALANINE AMINOTRANSFERASE 22 U/L (12-78); ALBUMIN 3.5 g/dL (3.4-5.0); ALKALINE PHOSPHATASE 90 U/L (46-116); ASPARTATE AMINOTRANSFERASE 20 U/L (15-37); BILIRUBIN,DIRECT 0.1 mg/dL (0.0-0.2); BILIRUBIN,TOTAL 0.5 mg/dL (0.2-1.0); CARBON DIOXIDE 25 mmol/L (21-32); CHLORIDE 101 mmol/L (98-107); GLUCOSE 151 mg/dL (74-106); POTASSIUM 3.8 mmol/L (3.5-5.1); SODIUM SERUM 135 mmol/L (136-145); UREA NITROGEN, BLOOD 28 mg/dL (7-18)
--- NOTE | 2022-11-12 00:52 | NUR ---
LAB AT BEDSIDE FOR BLOOD DRAW
--- NOTE | 2022-11-12 02:19 | NUR ---
IV removed. Catheter intact and site benign. Pressure and 4x4 applied to site. No bleeding noted.Patient discharged to home in stable condition. Written and verbal after care instructions given. Patient verbalizes understanding of instruction.
[2022-11-12 02:20] VITALS: BP 142/86
== END 2022-11-12 02:20 | disposition home or self-care (01) ==
LOC: ER 22:34
DX: I12.9 Hypertensive chronic kidney disease with stage 1 through stage 4 chronic kidney disease, or unspecified chronic kidney disease (principal); N18.9 Chronic kidney disease, unspecified; R73.9 Hyperglycemia, unspecified; R10.9 Unspecified abdominal pain; Z79.899 Other long term (current) drug therapy
CPT/HCPCS: 99285; 96374; 71045; 93005 ×3; 85025; 80048; 80076; 81003; 36415 ×2; 84484 ×2; J0360